=== PATIENT | female | born 1980 | race Caucasian/White ===

== ENCOUNTER 2023-07-02 08:54 | Emergency (ER) | payer OTHER, SELFPAY ==
[2023-07-02 08:57] VITALS: BP 142/96
--- NOTE | 2023-07-02 09:21 | ED.GENMED ---
History of Present Illness
<Ramonita Haynes PA-C - Last Filed: 07/02/23 11:03>
General
Chief Complaint: Back Pain
Source: patient
Exam Limitations: none
Time Seen by Provider: 07/02/23 09:01
Nursing documentation reviewed up to this point in time: agreed with
Travel History
Have you had any contact with someone who has COVID-19?: No
Do you have any symptoms of coronavirus? Fever > 100 degrees, chills, cough, shortness of breath, sore throat, loss of taste or smell, muscle aches, or headache?: No
History of Present Illness
History of Present Illness:
Patient is a 43 year old female with no significant past medical history presenting for evaluation of left sided lower back pain. She first noticed symptoms about 3 weeks ago. She was seen by her primary care who attributed symptoms to a muscular
etiology and prescribed Motrin 600mg. She initially felt that symptoms were improving until yesterday when they seemed to acutely worsen and pain was so severe that she had difficulty sleeping last night. Symptoms are best when she is standing
and/or walking and made worse with sitting/ bending forward. Pain is 8/10 in severity, located in left lower back without radiation into legs. She denies any fever, chills, chest pain, shortness of breath, numbness/tingling in lower legs,
bowel/bladder incontinence, or any urinary symptoms. She denies any abnormal vaginal bleeding or discharge. She is currently on her period. She has had no known trauma or injury to back.
She had a uterine ablation in Mar 2023 - she also saw her OBGYN to evaluate back pain over the past few weeks who ordered an outpatient pelvic ultrasound which patient has not had the ability to have completed yet.
Past History
<Ramonita Haynes PA-C - Last Filed: 07/02/23 11:03>
Past History
ED Past Medical History: None
ED Past Surgical History: None
Social History
Tobacco: Non-smoker
Alcohol: Occasional
Living: with family
Family History
Family History: Other (Father has a history of a single episode of atrial fibrillation); Negative Diabetes, Hypertension, Early CAD, Asthma or Cancer
Phy Exam
<Ramonita Haynes PA-C - Last Filed: 07/02/23 11:03>
Physical Exam
Physical Exam:
General: In mild distress due to pain and non-toxic, vital signs reviewed- patient afebrile
HEENT: Atraumatic, normocephalic; pupils equal round and reactive to light bilaterally, protecting airway
Neck: appears supple, normal ROM, no meningeal signs
CV: Regular rate and rhythm, heart sounds normal, no evidence of cyanosis
Resp: No evidence of respiratory distress, lungs clear, no accessory muscle use
Abd: Soft, nontender; non-distended; some left sided CVA tenderness
Extremities: No deformities, no evidence of cyanosis or edema; moving all extremities
Back: Pain with flexion, no cervical spine or midline spinal tenderness, left lower back pain nonreproducible
Neuro: alert and oriented to person, place, time; speech normal, no focal neurological deficits, strength 5/5 in upper and lower extremities, sensation fully intact and equal bilaterally, patellar reflexes 2+ bilaterally
Psych: Normal affect
Skin: Intact, no rashes
Course
<Ramonita Haynes PA-C - Last Filed: 07/02/23 11:03>
Orders/Labs/Results
Orders:
Orders
07/02/23 09:25
CT Abd/pel Without Iv Or Oral Urgent
Comment:
Reason For Exam: left sided lower back pain
07/02/23 09:26
Test Result ONCE
07/02/23 09:30
Ketorolac [Toradol] 30 mg IM NOW STA
07/02/23 09:38
HCG, Urine Qualitative Screen Urgent
Date Specimen was Collected: 07/02/23
Time Specimen was Collected: 09:31
Urinalysis Reflex To Culture Urgent
Date Specimen was Collected: 07/02/23
Time Specimen was Collected: :
Vital Signs
Initial and Last Documented VS:
Initial Vital Signs
Temp Pulse Resp BP Pulse Ox
99.2 F 75 16 142/96 99
07/02/23 08:57 07/02/23 08:57 07/02/23 08:57 07/02/23 08:57 07/02/23 08:57
Last Documented Vital Signs
Temp Pulse Resp BP Pulse Ox
99.2 F 75 16 142/96 99
07/02/23 08:57 07/02/23 08:57 07/02/23 08:57 07/02/23 08:57 07/02/23 08:57
<Demetri Sauer, - Last Filed: 07/02/23 09:44>
Orders/Labs/Results
Orders:
Orders
07/02/23 09:25
CT Abd/pel Without Iv Or Oral Urgent
Comment:
Reason For Exam: left sided lower back pain
07/02/23 09:26
Test Result ONCE
07/02/23 09:30
Ketorolac [Toradol] 30 mg IM NOW STA
07/02/23 09:38
HCG, Urine Qualitative Screen Urgent
Date Specimen was Collected: 07/02/23
Time Specimen was Collected:
Urinalysis Reflex To Culture Urgent
Date Specimen was Collected: 07/02/23
Time Specimen was Collected: :
Vital Signs
Initial and Last Documented VS:
Initial Vital Signs
Temp Pulse Resp BP Pulse Ox
99.2 F 75 16 142/96 99
07/02/23 08:57 07/02/23 08:57 07/02/23 08:57 07/02/23 08:57 07/02/23 08:57
Last Documented Vital Signs
Temp Pulse Resp BP Pulse Ox
99.2 F 75 16 142/96 99
07/02/23 08:57 07/02/23 08:57 07/02/23 08:57 07/02/23 08:57 07/02/23 08:57
<Ramonita Haynes PA-C - Last Filed: 07/02/23 11:03>
MDM/Problems Addressed
Differential Diagnosis Includes:
lumbar muscle strain, spinal stenosis, nephrolithiasis, pyelonephritis, UTI, ovarian cyst
MDM/Problems Addressed:
Patient is a 43 year old female presenting for evaluation of intermittent left sided low back pain over the past 3 weeks with acute worsening yesterday. No improvement with Motrin. No fever, chills, urinary symptoms, numbness/tingling of lower
extremities. No red flag back pain symptoms. Had uncomplicated uterine ablation in Mar 2023. Patient is hemodynamically stable on arrival to ED - afebrile. Physical exam as documented above. In mild distress due to pain. She is neurologically
intact. Left sided low back pain is nonreproducible with no visible rash or bruising of skin. She has pain with flexion. Mild left sided CVA tenderness. Will get UA and non-contrast CT of abdomen/pelvis to rule out renal/ etiology of back pain.
Will give 30mg IM Toradol. Will reassess.
UA shows no signs indicating a urinary tract infection.CT scan largely unremarkable. Some degenerative changes in lumbosacral junction with no evidence of kidney stone. Discussed findings with patient. She had no relief from toradol. Suspect likely
muscular strain. She is stable for discharge with close return precaution and supportive care at home. Will send prescription for percocet. Recommend OTC lidocaine patches at home. PCP and ortho follow-up if symptoms persist/ worsen. Patient is
comfortable with plan. All questions answered.
Chronic conditions affecting care:
HTN
Acute Exacerbation and/or Progression of Chronic Illness:
Low back pain
<Ramonita Haynes PA-C - Last Filed: 07/02/23 11:03>
*Radiology
Radiology exam reviewed: preliminary read by ED provider and radiology read reviewed
*Pulse Oximetry
Patient hypoxic: no
*Lasting Machine Operator Interpretation
Rate: Lasting Machine Operator- N/A
*Critical Care Note
Total Time (30-74mins, 75-104mins- exclusive of procedures): Not Applicable
ED Attending Note
<Ramonita Haynes PA-C - Last Filed: 07/02/23 11:03>
-
Portions of this chart may have been created with voice recognition software.� Occasional wrong word or��sound alike� substitutions may have occurred due to the inherent limitations of voice recognition software.
<Demetri Sauer DO - Last Filed: 07/02/23 09:44>
ED Attending Note
Patient seen and examined by attending physician: Yes
I performed the substantive portion of visit, reviewed & personally made and approve the management plan that is documented in note by myself or RAIZA.: Yes
I performed a history and physical exam of patient and discussed management with resident, I reviewed resident's note and agree with documented findings and plan of care.: Yes
ED Attending Note:
I evaluated the patient at bedside at 9:30 AM. The patient has minimal tenderness inferior to the left CVA region. She appears somewhat uncomfortable. She tells me that Motrin has not been helping. Will try a dose of IM Toradol. She declines
stronger narcotic analgesia. Will check CT imaging and urinalysis and reassess.
Discharge Plan
Departure
Patient Disposition: Home (Routine Discharge)
Date of Disposition: 07/02/23
Time of Disposition: 10:41
Patient with high blood pressure during this ER visit?: Yes
Condition: Good
Covid-19: Not Applicable
Discharge Problem:
Low back pain
Instructions: Low Back Pain (DC), BLOOD PRESSURE
Prescriptions:
New
oxycodone-acetaminophen [Percocet] 5-325 mg tablet
1 tab PO Q6HPRN PRN (Reason: pain) Qty: 14 0RF
No Action
lisinopril 30 mg Tablet
30 mg PO NOON
sertraline 25 mg Tablet
25 mg PO QPM
semaglutide (weight loss) 0.5 mg/0.5 mL Pen Injector
0.15 mg SC WEEKLY
Referrals:
Tadeo Ochoa PA-C [Family Provider] -
Activity Restrictions/Additional Instructions:
-Return to the emergency department with any high fevers, chest pain, shortness of breath, intractable vomiting, severe abdominal pain, numbness/tingling in lower legs, bowel/bladder incontinence, severe back pain, significant worsening in current
symptoms, or any other concerns
-The prescription has been sent to your pharmacy. This drug may cause drowsiness�do not take prior to driving. You can take MiraLAX to help prevent associated constipation while taking Percocet.
-You can try [id number] lidocaine patches for pain.
-Follow-up with primary care as needed.
Interventions
Interventions:
*Risk Screen - Suicide Last Done: 07/02/23 08:57
*General Assessment Last Done: 07/02/23 08:57
*Neglect/Abuse Screening Last Done: 07/02/23 08:57
ED-Musculoskeletal Assessment Last Done: 07/02/23 09:34
[2023-07-02] MEDS: TORADOL 30 MG IM (09:34)
[2023-07-02 09:51] LABS: Urine Albumin Negative (Neg - Trace); Urine Bilirubin Negative (Negative); Urine Character Clear (Clear); Urine Color Yellow; Urine Glucose Negative (Negative); Urine Ketone Negative (Negative); Urine Leukocyte Negative (Negative); Urine Nitrite Negative (Negative); Urine Occult Blood Negative (Negative); Urine Specific Gravity 1.005 (<1.030); Urine Urobilinogen Negative (Neg - 1+)
[2023-07-02 09:57] LABS: HCG, Urine Qualitative Screen Negative
== END 2023-07-02 11:05 | disposition home or self-care (01) ==
LOC: EMR 08:54
PROVIDERS: Physician Assistant; EMERGENCY PHYSICIAN Emergency Medicine; FAMILY PHYSICIAN Physician Assistant Medical
DX: M54.50 Low back pain, unspecified (principal); I10 Essential (primary) hypertension; Z82.49 Family history of ischemic heart disease and other diseases of the circulatory system
CPT/HCPCS: 99283; 96372; 74176; 81003; 81025

== ENCOUNTER → 2023-12-14 17:50 | Outpatient (REF) | payer OTHER, SELFPAY | LOC: WDC 17:50 | PROVIDERS: ATTENDING PHYSICIAN Obstetrics & Gynecology; FAMILY PHYSICIAN Physician Assistant Medical | DX: Z12.31 Encounter for screening mammogram for malignant neoplasm of breast (principal) | CPT/HCPCS: 77063; 77067 ==

== ENCOUNTER → 2024-10-11 08:03 | Outpatient (REF) | payer OTHER, SELFPAY | LOC: HWRAD 08:03 | PROVIDERS: ATTENDING PHYSICIAN Emergency Medicine | DX: I10 Essential (primary) hypertension (principal) | CPT/HCPCS: 76775 ==

== ENCOUNTER → 2024-10-17 06:59 | Outpatient (REF) | payer OTHER, SELFPAY | LOC: RAD 06:59 | PROVIDERS: ATTENDING PHYSICIAN Emergency Medicine | DX: I10 Essential (primary) hypertension (principal) | CPT/HCPCS: 93975 ==

== ENCOUNTER → 2024-12-18 16:58 | Outpatient (REF) | payer OTHER, SELFPAY | LOC: WDC 16:58 | PROVIDERS: ATTENDING PHYSICIAN Obstetrics & Gynecology; FAMILY PHYSICIAN Emergency Medicine | DX: Z12.31 Encounter for screening mammogram for malignant neoplasm of breast (principal) | CPT/HCPCS: 77063; 77067 ==

== ENCOUNTER → 2025-04-26 14:36 | Outpatient (REF) | payer OTHER, SELFPAY | LOC: REG 14:36 | PROVIDERS: ATTENDING PHYSICIAN Physician Assistant Medical | DX: M25.512 Pain in left shoulder (principal) | CPT/HCPCS: 73030 ==

== ENCOUNTER → 2025-05-28 15:57 | Outpatient (REF) | payer OTHER, SELFPAY | LOC: RCS 15:57 | PROVIDERS: ATTENDING PHYSICIAN Internal Medicine Cardiovascular Disease; FAMILY PHYSICIAN Physician Assistant Medical | DX: I10 Essential (primary) hypertension (principal) | CPT/HCPCS: 93306 ==